=== PATIENT | female | born 1965 | race Caucasian/White ===

== ENCOUNTER 2018-01-12 12:43 | Outpatient (CLI) | payer MEDICARE, MEDICAID ==
--- NOTE | 2018-01-12 15:26 | ULT ---
THYROID ULTRASOUND: INDICATIONS: Enlarged thyroid gland. COMPARISON: None. TECHNIQUE: Calderón-scale color Doppler images were obtained of the thyroid gland. FINDINGS: The right thyroid lobe measures 4.7 x 1.4 x 1.5 cm. The left thyroid lobe measures 3.9 x 1.2 x 1 cm. The thyroid isthmus measures 0.36 cm. There is diffuse heterogeneity of the thyroid gland without a focal dominant lesion. IMPRESSION: Diffuse heterogeneous appearance of the thyroid gland may be related to a multinodular goiter. No do minant nodule is demonstrated. POS: [facility]
== END 2018-01-12 12:44 | disposition home or self-care (01) ==
LOC: ULT 12:43
PROVIDERS: ATTEND Family Medicine
DX: E03.9 Hypothyroidism, unspecified (principal); E04.9 Nontoxic goiter, unspecified
CPT/HCPCS: 76536

== ENCOUNTER 2018-03-01 15:38 | Outpatient (CLI) | payer MEDICARE, MEDICAID | END 2018-03-01 15:39 | disposition home or self-care (01) | LOC: BICMAMMO 15:38 | PROVIDERS: ATTEND Family Medicine | DX: Z12.31 Encounter for screening mammogram for malignant neoplasm of breast (principal); Z80.3 Family history of malignant neoplasm of breast | CPT/HCPCS: 77063; 77067 ==

== ENCOUNTER 2018-06-27 10:05 | Outpatient (CLI) | payer MEDICARE, MEDICAID | END 2018-06-27 10:06 | disposition home or self-care (01) | LOC: BICMRI 10:05 | PROVIDERS: ATTEND Family Medicine | DX: M75.41 Impingement syndrome of right shoulder (principal); M19.011 Primary osteoarthritis, right shoulder; M25.811 Other specified joint disorders, right shoulder ==

== ENCOUNTER 2019-03-08 12:45 | Outpatient (CLI) | payer MEDICARE, MEDICAID ==
--- NOTE | 2019-03-08 14:13 | MMO ---
Bilateral MAMMO Bilat Screen [facility]. CLINICAL HISTORY: Patient is 54 years old and is seen for screening. The patient has no personal history of cancer. VIEWS: The views performed were: bilateral craniocaudal with tomosynthesis and bilateral mediolateral oblique with tomosynthesis. FILMS COMPARED: The present examination has been compared to prior imaging studies performed at [facility] on 02/22/2015, 02/25/2016, 02/25/2017 and 03/01/2018. MAMMOGRAM FINDINGS: There are scattered fibroglandular densities. Finding 1: There are multiple stable intramammary lymph nodes seen in both breasts. Finding 2: There are stable global asymmetries seen in the sub-areolar region of both breasts. There are no suspicious masses, suspicious calcifications, or new areas of architectural distortion. IMPRESSION: THERE IS NO MAMMOGRAPHIC EVIDENCE OF MALIGNANCY. A ROUTINE FOLLOW-UP MAMMOGRAM IN 1 YEAR IS RECOMMENDED. THE RESULTS OF THIS EXAM WERE SENT TO THE PATIENT. ACR BI-RADS Category 2 - Benign finding MAMMOGRAPHY NOTE: 1. A negative mammogram report should not delay a biopsy if a dominant of clinically suspicious mass is present. 2. Approximately 10% to 15% of breast cancers are not detected by mammography. 3. Adenosis and dense breasts may obscure an underlying neoplasm.
== END 2019-03-08 12:46 | disposition home or self-care (01) ==
LOC: BICMAMMO 12:45
PROVIDERS: ATTEND Family Medicine
DX: Z12.31 Encounter for screening mammogram for malignant neoplasm of breast (principal)
CPT/HCPCS: 77063; 77067

== ENCOUNTER 2019-04-17 11:40 | Outpatient (CLI) | payer MEDICARE, MEDICAID ==
--- NOTE | 2019-04-17 13:41 | RAD ---
RADIOGRAPH ABDOMEN 2 VIEWS: Date: 04/17/19 HISTORY: 54-year-old female with epigastric pain. FINDINGS: No evidence of free air. No differential air fluid levels. Bowel gas pattern appears nonobstructive. IMPRESSION: negative. POS: [facility]
== END 2019-04-17 11:41 | disposition home or self-care (01) ==
LOC: BICRAD 11:40
PROVIDERS: ATTEND Physician Assistant Medical
DX: R10.13 Epigastric pain (principal)
CPT/HCPCS: 74019

== ENCOUNTER 2020-07-02 13:30 | Outpatient (CLI) | payer OTHER, MEDICAID ==
--- NOTE | 2020-07-02 14:24 | MMO ---
Bilateral MAMMO Bilat Screen [facility]. CLINICAL HISTORY: Patient is 55 years old and is seen for screening. The patient has no family history of breast cancer. The patient has no personal history of cancer. VIEWS: The views performed were: bilateral craniocaudal with tomosynthesis and bilateral mediolateral oblique with tomosynthesis. FILMS COMPARED: The present examination has been compared to prior imaging studies performed at [facility] on 02/25/2016, 02/25/2017, 03/01/2018 and 03/08/2019. This study has been interpreted with the assistance of computer-aided detection. MAMMOGRAM FINDINGS: The breasts are heterogeneously dense, which could obscure a lesion on mammography. Finding 1: There are multiple stable intramammary lymph nodes of varying size seen in both breasts. Finding 2: There are stable global asymmetries seen in the sub-areolar region of both breasts. There are no suspicious masses, suspicious calcifications, or new areas of architectural distortion. IMPRESSION: THERE IS NO MAMMOGRAPHIC EVIDENCE OF MALIGNANCY. A ROUTINE FOLLOW-UP MAMMOGRAM IN 1 YEAR IS RECOMMENDED. THE RESULTS OF THIS EXAM WERE SENT TO THE PATIENT. ACR BI-RADS Category 2 - Benign finding MAMMOGRAPHY NOTE: 1. A negative mammogram report should not delay a biopsy if a dominant of clinically suspicious mass is present. 2. Approximately 10% to 15% of breast cancers are not detected by mammography. 3. Adenosis and dense breasts may obscure an underlying neoplasm. Reported by: BEN EUBANKS MD Electonically Signed: [id number]
== END 2020-07-02 13:31 | disposition home or self-care (01) ==
LOC: BICMAMMO 13:30
PROVIDERS: ATTEND Family Medicine
DX: Z12.31 Encounter for screening mammogram for malignant neoplasm of breast (principal)
CPT/HCPCS: 77063; 77067

== ENCOUNTER 2020-10-30 15:18 | Outpatient (CLI) | payer OTHER, MEDICAID ==
--- NOTE | 2020-10-30 16:31 | RAD ---
Abdomen one view HISTORY: Right abdominal pain. Constipation. FINDINGS: Gas and stool overlying the colon and rectum. Small bowel gas pattern is nonspecific. Phleboliths project over the pelvis. Small oval hyperdensity projecting over the right lateral abdomen is favored to represent colon radha nt. Metallic clip overlies the central pelvis. IMPRESSION : No acute abnormalities are demonstrated.
== END 2020-10-30 15:19 | disposition home or self-care (01) ==
LOC: BICRAD 15:18
PROVIDERS: ATTEND Physician Assistant Medical
DX: K58.1 Irritable bowel syndrome with constipation (principal); K21.9 Gastro-esophageal reflux disease without esophagitis
CPT/HCPCS: 74018

== ENCOUNTER 2021-07-28 15:52 | Outpatient (CLI) | payer MEDICARE, MEDICAID | END 2021-07-28 15:53 | disposition home or self-care (01) | LOC: BICMAMMO 15:52 | PROVIDERS: ATTEND Family Medicine | DX: Z12.31 Encounter for screening mammogram for malignant neoplasm of breast (principal) | CPT/HCPCS: 77063; 77067 ==

== ENCOUNTER 2021-10-28 12:19 | Inpatient (IN) | payer MEDICARE, MEDICAID ==
[2021-10-28 13:00] LABS: #Eosinphils 0.1 thou/uL (0.0-0.7); #Lymphocytes 2.7 thou/uL (1.20-3.40); #Monocytes 0.6 thou/uL (0.11-0.59); #Neutrophils 10.7 thou/uL (1.40-6.50); %Basophils 0.2 % (0.0-1.0); %Eosinophils 0.5 % (0.0-10.0); %Monocytes 4.1 % (0.0-10.0); %Neutrophils 76.2 % (42.0-75.0); Hemoglobin 14.4 g/dL (12.0-16.0); Mean Corpuscular HGB CONC 35.1 g/dL (32.0-36.0); Mean Corpuscular Hemoglobin 34.1 pg (27.0-31.0); Mean Corpuscular Volume 97.1 fL (78.0-98.0); Platelet Count 297 thou/uL (130-400); RBC Distribution Width 11.5 % (11.5-14.5); Red Blood Cell (RBC) Count 4.24 mill/uL (4.20-5.40)
[2021-10-28 13:22] LABS: ALT (SGPT) 31 U/L (8-55); AST (SGOT) 26 U/L (5-34); Albumin 4.4 g/dL (3.5-5.0); Alkaline Phosphatase 136 U/L (40-110); Anion Gap 19 mmol/L (10-20); BUN (Urea Nitrogen) 39 mg/dL (9.8-20.1); Bilirubin, Total 0.7 mg/dL (0.2-1.2); Calc. Creatinine Clearance 0 mL/min (70-130); Calcium 10.9 mg/dL (7.8-10.44); Carbon Dioxide 28 mmol/L (22-29); Chloride 84 mmol/L (98-107); Globulin 3.9 g/dL (2.4-3.5); Potassium 5.2 mmol/L (3.5-5.1); Protein, Total 8.3 g/dL (6.0-8.3); Sodium 126 mmol/L (136-145)
[2021-10-28 13:45] LABS: Glucose 847 mg/dL (70-105)
[2021-10-28 14:51] LABS: Magnesium 2.2 mg/dL (1.6-2.6)
[2021-10-28 17:02] LABS: Bacteria/HPF None Seen HPF (None Seen); Bilirubin Negative (Negative); Blood, Urine Negative (Negative); Clarity Clear (Clear); Glucose, Urine (Dipstick) Greater than 1000 mg/dL (Negative); Ketone, Urine 10 mg/dL (Negative); Leukocyte 75 Leu/uL (Negative); Nitrite Negative (Negative); Protein, Urine (Dipstick) Negative (Neg-Trace); RBC/HPF 0-3 HPF (0-3); Specific Gravity, Urine 1.031 (1.002-1.036); Squamous Epithelial None Seen HPF (0-3); Urobilinogen Normal mg/dL (Less than 2); pH, Urine 5.5 (5.0-9.0)
[2021-10-28] MEDS ORDERED: HumaLOG 300 UNITS/3 ML VIAL ONE ×2 (19:04→19:13)
[2021-10-28] MEDS ORDERED: Dextrose 50% Abboject 50 ML SYRINGE SLOW IVP PRN (19:07)
[2021-10-28] MEDS ORDERED: Dextrose 5% in Water 1,000 ML IV PRN (19:07)
[2021-10-28] MEDS ORDERED: Insulin Regular 300 UNITS/3 ML VIAL ONE (19:14)
[2021-10-28 19:50] LABS: Anion Gap 17 mmol/L (10-20); BUN (Urea Nitrogen) 34 mg/dL (9.8-20.1); Calc. Creatinine Clearance 0 mL/min (70-130); Carbon Dioxide 27 mmol/L (22-29); Chloride 92 mmol/L (98-107); Lipase 71 U/L (8-78); Sodium 132 mmol/L (136-145)
[2021-10-28 19:58] LABS: Glucose 559 mg/dL (70-105)
[2021-10-28 20:21] LABS: Hemoglobin A1c Greater than 14.0 % (4.0-6.0)
[2021-10-28 20:26] LABS: ALT (SGPT) 27 U/L (8-55); AST (SGOT) 20 U/L (5-34); Alkaline Phosphatase 116 U/L (40-110); Anion Gap 17 mmol/L (10-20); BUN (Urea Nitrogen) 34 mg/dL (9.8-20.1); Bilirubin, Total 0.5 mg/dL (0.2-1.2); Calc. Creatinine Clearance 0 mL/min (70-130); Carbon Dioxide 27 mmol/L (22-29); Chloride 92 mmol/L (98-107); Globulin 3.6 g/dL (2.4-3.5); Potassium 4.4 mmol/L (3.5-5.1); Protein, Total 7.6 g/dL (6.0-8.3); Sodium 132 mmol/L (136-145)
[2021-10-28 20:38] LABS: Glucose 559 mg/dL (70-105)
[2021-10-28 22:26] VITALS: BMI 34.4
[2021-10-28] MEDS: Sodium Chloride 0.9% 1,000 ML IV SCH ×2 (22:53→23:43)
[2021-10-29 01:00] LABS: Anion Gap 14 mmol/L (10-20); BUN (Urea Nitrogen) 30 mg/dL (9.8-20.1); Calc. Creatinine Clearance 70 mL/min (70-130); Calcium 9.6 mg/dL (7.8-10.44); Carbon Dioxide 25 mmol/L (22-29); Chloride 98 mmol/L (98-107); Glucose 330 mg/dL (70-105); Potassium 3.7 mmol/L (3.5-5.1); Sodium 133 mmol/L (136-145)
[2021-10-29] MEDS: HumaLOG 300 UNITS/3 ML VIAL SC PRN ×4 (01:04→17:07)
[2021-10-29] MEDS ORDERED: Potassium Chloride 20 MEQ in Premix Bag 1 BAG IVPB SCH (03:00)
[2021-10-29] MEDS ORDERED: Potassium Chloride 10 MEQ/100 ML PREMIX BAG IVPB SCH (03:00)
[2021-10-29] MEDS: Levothyroxine Sodium 125 MCG TAB PO SCH (05:09)
[2021-10-29] MEDS: Gabapentin 100 MG CAP PO SCH ×2 (08:12→21:37)
[2021-10-29] MEDS: Potassium Chloride 10 MEQ TAB PO SCH (08:12)
[2021-10-29] MEDS: Fish Oil 1,000 MG CAP PO SCH (08:12)
[2021-10-29] MEDS: Aspirin 81 mg Enteric Coated Tablet PO SCH (08:12)
[2021-10-29] MEDS: Sodium Chloride 0.9% 1,000 ML IV SCH ×5 (08:13→21:38)
[2021-10-29] MEDS ORDERED: Sodium Chloride 0.9% 500 ML IVPB SCH (08:30)
[2021-10-29 08:32] LABS: ALT (SGPT) 24 U/L (8-55); AST (SGOT) 23 U/L (5-34); Albumin 3.4 g/dL (3.5-5.0); Alkaline Phosphatase 94 U/L (40-110); Anion Gap 12 mmol/L (10-20); BUN (Urea Nitrogen) 25 mg/dL (9.8-20.1); Bilirubin, Total 0.5 mg/dL (0.2-1.2); Calc. Creatinine Clearance 78 mL/min (70-130); Calcium 9.2 mg/dL (7.8-10.44); Carbon Dioxide 29 mmol/L (22-29); Chloride 100 mmol/L (98-107); Globulin 3.1 g/dL (2.4-3.5); Glucose 218 mg/dL (70-105); Potassium 3.6 mmol/L (3.5-5.1); Protein, Total 6.5 g/dL (6.0-8.3); Sodium 137 mmol/L (136-145)
[2021-10-29] MEDS ORDERED: Naproxen 500 MG TAB PO SCH (08:45)
[2021-10-29] MEDS ORDERED: Hydrochlorothiazide 25 MG TAB PO SCH (09:00)
[2021-10-29] MEDS ORDERED: Atenolol 50 MG TAB PO SCH (09:00)
[2021-10-29] MEDS ORDERED: Non-Formulary Item 1 EACH (Olmesartan Medoxomil [Benicar] 40 MG Tab) PO SCH (09:00)
[2021-10-29] MEDS ORDERED: Losartan 25 MG TAB PO SCH (09:00)
[2021-10-29] MEDS ORDERED: Multivitamin W/ Minerals 1 TAB PO SCH (09:00)
[2021-10-29] MEDS ORDERED: glipiZIDE 10 MG TAB PO SCH (10:30)
[2021-10-29] MEDS: Lansoprazole 3 MG/ML ORAL SUSPENSION PO SCH ×2 (11:19→21:36)
[2021-10-29 11:23] LABS: SARS-CoV-2 PCR by NAA Not Detected (NotDetected)
[2021-10-29 11:34] LABS: Hemoglobin A1c Greater than 14.0 % (4.0-6.0)
[2021-10-29] MEDS ORDERED: diphenhydrAMINE 50 MG/ML VIAL IVP SCH (13:30)
[2021-10-29] MEDS ORDERED: Prochlorperazine Edisylate 10 MG in Sodium Chloride 0.9% 50 ML IVPB SCH (13:45)
[2021-10-29] MEDS: Calcium Carbonate 500 MG ChewTAB PO PRN (14:01)
[2021-10-29] MEDS: Atorvastatin Calcium 40 MG TAB PO SCH (21:37)
[2021-10-30] MEDS: HumaLOG 300 UNITS/3 ML VIAL SC PRN ×6 (00:01→20:34)
[2021-10-30] MEDS: Calcium Carbonate 500 MG ChewTAB PO PRN (03:52)
[2021-10-30] MEDS: Sodium Chloride 0.9% 1,000 ML IV SCH (03:56)
[2021-10-30] MEDS: Levothyroxine Sodium 125 MCG TAB PO SCH (05:35)
[2021-10-30] MEDS: Fish Oil 1,000 MG CAP PO SCH (08:19)
[2021-10-30] MEDS: Gabapentin 100 MG CAP PO SCH ×2 (08:19→20:33)
[2021-10-30] MEDS: Potassium Chloride 10 MEQ TAB PO SCH (08:20)
[2021-10-30] MEDS: Multivitamin W/ Minerals 1 TAB PO SCH (08:20)
[2021-10-30] MEDS: glipiZIDE 10 MG TAB PO SCH (08:20)
[2021-10-30] MEDS: Aspirin 81 mg Enteric Coated Tablet PO SCH (08:20)
[2021-10-30] MEDS ORDERED: glipiZIDE 10 MG TAB PO SCH (09:00)
[2021-10-30 09:42] LABS: Anion Gap 13 mmol/L (10-20); BUN (Urea Nitrogen) 15 mg/dL (9.8-20.1); Calc. Creatinine Clearance 88 mL/min (70-130); Calcium 8.5 mg/dL (7.8-10.44); Carbon Dioxide 23 mmol/L (22-29); Chloride 104 mmol/L (98-107); Glucose 229 mg/dL (70-105); Potassium 3.5 mmol/L (3.5-5.1); Sodium 136 mmol/L (136-145)
[2021-10-30] MEDS ORDERED: Polyethylene Glycol 3350 17 GM Packet PO SCH (11:00)
[2021-10-30] MEDS ORDERED: Metoclopramide HCl 10 MG TAB PO SCH (11:00)
[2021-10-30] MEDS ORDERED: Bisacodyl 5 MG TAB PO SCH (11:00)
[2021-10-30] MEDS ORDERED: diphenhydrAMINE 50 MG/ML VIAL IVP SCH (11:00)
[2021-10-30] MEDS ORDERED: Lantus 1000 UNITS/10 ML VIAL SC SCH (11:00)
[2021-10-30] MEDS ORDERED: Bisacodyl 5 MG TAB ONE (11:39)
[2021-10-30] MEDS ORDERED: Metoclopramide HCl 10 MG TAB ONE (11:39)
[2021-10-30] MEDS ORDERED: Polyethylene Glycol 3350 17 GM Packet ONE ×2 (11:40→11:51)
[2021-10-30] MEDS ORDERED: diphenhydrAMINE 50 MG/ML VIAL ONE (11:40)
[2021-10-30] MEDS: Lansoprazole 3 MG/ML ORAL SUSPENSION PO SCH ×2 (11:48→20:32)
[2021-10-30] MEDS ORDERED: Sodium Chloride 0.65% Nasal 44 ML BOT EA NARE PRN (15:12)
[2021-10-30] MEDS ORDERED: Glycerin Adult Supp. (24 ct jar) PR SCH (17:00)
[2021-10-30] MEDS: Acetaminophen 325 MG TAB PO PRN ×2 (18:06→21:55)
[2021-10-30] MEDS ORDERED: Lidocaine 2% Viscous Solution 20 ML, Aluminum & Magnesium Hydroxide 30 ML, Donnatal Eli... SSW SCH (19:00)
[2021-10-30] MEDS: Atorvastatin Calcium 40 MG TAB PO SCH (20:33)
[2021-10-31] MEDS: HumaLOG 300 UNITS/3 ML VIAL SC PRN ×3 (05:06→16:35)
[2021-10-31] MEDS: Levothyroxine Sodium 125 MCG TAB PO SCH (05:06)
[2021-10-31] MEDS ORDERED: Lantus 1000 UNITS/10 ML VIAL SC SCH (09:00)
[2021-10-31] MEDS ORDERED: Lidocaine Viscous Sol 2% 15 ml UD Cup SSW SCH (10:30)
[2021-10-31] MEDS: glipiZIDE 10 MG TAB PO SCH (11:20)
[2021-10-31] MEDS: Fish Oil 1,000 MG CAP PO SCH (11:21)
[2021-10-31] MEDS: Aspirin 81 mg Enteric Coated Tablet PO SCH (11:21)
[2021-10-31] MEDS: Gabapentin 100 MG CAP PO SCH (11:21)
[2021-10-31] MEDS: Lansoprazole 3 MG/ML ORAL SUSPENSION PO SCH (11:22)
[2021-10-31] MEDS: Multivitamin W/ Minerals 1 TAB PO SCH (11:23)
[2021-10-31] MEDS: Potassium Chloride 10 MEQ TAB PO SCH (11:23)
[2021-10-31] MEDS ORDERED: Lidocaine 2% Viscous Solution 10 ML, Aluminum & Magnesium Hydroxide 30 ML SSW SCH (11:30)
[2021-10-31] MEDS ORDERED: Ketorolac Tromethamine 30 MG/ML VIAL IVP SCH (13:00)
[2021-10-31 19:15] VITALS: BP 157/103; TEMP 98.5
== END 2021-10-31 20:20 | disposition home or self-care (01) | DRG 682 ==
LOC: ERS 12:19 → T4-A 17:43
PROVIDERS: ADMIT Family Medicine; ATTEND Family Medicine
DX: N17.9 Acute kidney failure, unspecified (principal); E11.00 Type 2 diabetes mellitus with hyperosmolarity without nonketotic hyperglycemic-hyperosmolar coma (NKHHC); K85.90 Acute pancreatitis without necrosis or infection, unspecified; Z20.822 Contact with and (suspected) exposure to COVID-19; R51.9 Headache, unspecified; K76.0 Fatty (change of) liver, not elsewhere classified; E03.9 Hypothyroidism, unspecified; E11.43 Type 2 diabetes mellitus with diabetic autonomic (poly)neuropathy; K31.84 Gastroparesis; E78.5 Hyperlipidemia, unspecified; K21.9 Gastro-esophageal reflux disease without esophagitis; F79 Unspecified intellectual disabilities; R62.50 Unspecified lack of expected normal physiological development in childhood; E66.9 Obesity, unspecified; N18.30 Chronic kidney disease, stage 3 unspecified; I12.9 Hypertensive chronic kidney disease with stage 1 through stage 4 chronic kidney disease, or unspecified chronic kidney disease; E11.22 Type 2 diabetes mellitus with diabetic chronic kidney disease; I34.0 Nonrheumatic mitral (valve) insufficiency; Z79.899 Other long term (current) drug therapy; Z79.82 Long term (current) use of aspirin; Z79.890 Hormone replacement therapy; Z79.84 Long term (current) use of oral hypoglycemic drugs; Z90.89 Acquired absence of other organs; Z68.34 Body mass index [BMI] 34.0-34.9, adult; Z91.14 Patient's other noncompliance with medication regimen
CPT/HCPCS: 36415; 36416; 74018; 76700; 80048; 80053; 81003; 81015; 82010; 83036; 83690; 83735; 83930; 84100; 84484; 84681; 85025; 93005; 96374; J0780; J1200; J1815; J1885; J3480; J7030; J7050; U0003; U0005

== ENCOUNTER 2022-10-15 14:56 | Outpatient (CLI) | payer OTHER, MEDICAID | END 2022-10-15 14:57 | disposition home or self-care (01) | LOC: BICRAD 14:56 | PROVIDERS: ATTEND Physician Assistant | DX: M54.42 Lumbago with sciatica, left side (principal); M47.816 Spondylosis without myelopathy or radiculopathy, lumbar region | CPT/HCPCS: 72100 ==

== ENCOUNTER 2022-12-09 09:15 | Inpatient (IN) | payer OTHER, MEDICAID, MEDICARE ==
[2022-12-09] MEDS ORDERED: Insulin Regular 300 UNITS/3 ML VIAL SC SCH (10:00)
[2022-12-09] MEDS ORDERED: Sodium Chloride 0.9% 1,000 ML IV SCH (10:00)
[2022-12-09] MEDS ORDERED: Insulin Regular 300 UNITS/3 ML VIAL ONE (10:09)
[2022-12-09 10:20] LABS: #Basophils 0.1 thou/uL (0.0-0.2); #Eosinphils 0.1 thou/uL (0.0-0.7); #Lymphocytes 3.1 thou/uL (1.20-3.40); #Monocytes 0.4 thou/uL (0.11-0.59); #Neutrophils 3.3 thou/uL (1.40-6.50); %Basophils 1.1 % (0.0-1.0); %Eosinophils 1.5 % (0.0-10.0); %Lymphocytes 44.5 % (21.0-51.0); %Monocytes 6.1 % (0.0-10.0); %Neutrophils 46.9 % (42.0-75.0); Hemoglobin 13.1 g/dL (12.0-16.0); Mean Corpuscular HGB CONC 32.8 g/dL (32.0-36.0); Mean Corpuscular Hemoglobin 32.7 pg (27.0-31.0); Mean Corpuscular Volume 99.7 fl (78.0-98.0); Mean Platelet Volume 8.5 fL (7.4-10.4); Platelet Count 241 10x3/uL (130-400); RBC Distribution Width 11.1 % (11.5-14.5); Red Blood Cell (RBC) Count 3.99 mill/uL (4.20-5.40)
[2022-12-09 10:34] LABS: Bilirubin Negative (Negative); Blood, Urine Negative (Negative); Clarity Clear (Clear); Glucose, Urine (Dipstick) Greater than 1000 mg/dL (Negative); Ketone, Urine Negative (Negative); Leukocyte 500 Leu/uL (Negative); Nitrite Negative (Negative); Protein, Urine (Dipstick) Negative (Neg-Trace); RBC/HPF 0-3 HPF (0-3); Squamous Epithelial 0-3 HPF (0-3); Urobilinogen Normal mg/dL (Less than 2)
[2022-12-09 10:38] LABS: Bacteria/HPF 1+ HPF (None Seen); WBC/HPF 21-50 HPF (0-3)
[2022-12-09 10:50] LABS: ALT (SGPT) 34 U/L (8-55); AST (SGOT) 22 U/L (5-34); Alkaline Phosphatase 126 U/L (40-110); Anion Gap 16 mmol/L (10-20); BUN (Urea Nitrogen) 26 mg/dL (9.8-20.1); Bilirubin, Total 0.6 mg/dL (0.2-1.2); Calc. Creatinine Clearance 0 mL/min (70-130); Calcium 9.8 mg/dL (7.8-10.44); Carbon Dioxide 26 mmol/L (22-29); Chloride 93 mmol/L (98-107); Estimated GFR 38; Globulin 3.2 g/dL (2.4-3.5); Lipase 56 U/L (8-78); Magnesium 2.1 mg/dL (1.6-2.6); Phosphorus 5.2 mg/dL (2.3-4.7); Potassium 5.3 mmol/L (3.5-5.1); Protein, Total 7.2 g/dL (6.0-8.3); Sodium 130 mmol/L (136-145)
[2022-12-09 10:58] LABS: Actual Bicarbonate (HCO3v) 24 mEq/L (22-28); Analyzer IN Cardio ER; Calcium, Ionized (venous) 1.11 mmol/L (1.16-1.32); Chloride (VBG) 96 mmol/L (98-106); Hemoglobin (Hb) 13.7 g/dL (11.7-16.0); Potassium (VBG) 4.76 mmol/L (3.70-5.30); Sodium 130.4 mmol/L (133-146); pH (venous) 7.36 (7.32-7.43)
[2022-12-09 11:03] LABS: Glucose 809 mg/dL (70-105)
[2022-12-09] MEDS ORDERED: cefTRIAXone\\ROCEPHIN 2 GM VIAL ONE (11:06)
[2022-12-09] MEDS ORDERED: INSULIN REGULAR IN 0.9 % NACL 100 UNIT/100 ML BAG ONE (12:23)
[2022-12-09] MEDS ORDERED: Sodium Chloride 0.9% 1,000 ML IV PRN ×4 (13:25)
[2022-12-09] MEDS ORDERED: Electrolyte Replacement Protocol 1 EACH IVPB PRN (13:25)
[2022-12-09] MEDS ORDERED: Acetaminophen 325 MG TAB PO PRN (13:25)
[2022-12-09] MEDS ORDERED: D5 1/2 NS w/20 mEq KCL 1,000 ML IV PRN (13:25)
[2022-12-09] MEDS ORDERED: Dextrose 50% Abboject 50 ML SYRINGE SLOW IVP PRN ×2 (13:25→17:45)
[2022-12-09] MEDS ORDERED: Dextrose 5 %-0.45 % NaCl 1,000 ML IV PRN (13:25)
[2022-12-09] MEDS ORDERED: NS 0.9% w/ 20 MEQ KCL 1,000 ML IV PRN ×2 (13:25)
[2022-12-09] MEDS ORDERED: HUMULIN R 100 UNITS in Sodium Chloride 0.9% 100 ML IVPB SCH (13:30)
[2022-12-09] MEDS ORDERED: Dextrose 5% in Water 1,000 ML IV PRN ×2 (13:45→17:45)
[2022-12-09] MEDS ORDERED: Electrolyte Replacement Protocol FS PRN (13:45)
[2022-12-09 14:09] VITALS: BP 126/73
[2022-12-09 14:29] LABS: Anion Gap 12 mmol/L (10-20); BUN (Urea Nitrogen) 21 mg/dL (9.8-20.1); Calc. Creatinine Clearance 0 mL/min (70-130); Calcium 8.9 mg/dL (7.8-10.44); Carbon Dioxide 23 mmol/L (22-29); Chloride 108 mmol/L (98-107); Estimated GFR 65; Glucose 239 mg/dL (70-105); Potassium 3.7 mmol/L (3.5-5.1); Sodium 139 mmol/L (136-145)
[2022-12-09 15:50] LABS: SARS-CoV-2 NAA Rapid Test Not Detected (NotDetected)
[2022-12-09 15:51] VITALS: BMI 31.4
[2022-12-09 17:19] LABS: Hemoglobin A1c 12.6 % (4.0-6.0)
[2022-12-09] MEDS ORDERED: HumaLOG 300 UNITS/3 ML VIAL SC PRN (17:45)
[2022-12-09] MEDS: Lactated Ringer's 1,000 ML IV SCH (18:23)
[2022-12-09 18:45] LABS: Anion Gap 15 mmol/L (10-20); BUN (Urea Nitrogen) 19 mg/dL (9.8-20.1); Calc. Creatinine Clearance 93 mL/min (70-130); Carbon Dioxide 21 mmol/L (22-29); Chloride 110 mmol/L (98-107); Estimated GFR 69; Glucose 136 mg/dL (70-105); Sodium 142 mmol/L (136-145)
[2022-12-09] MEDS: Gabapentin 100 MG CAP PO SCH (20:26)
[2022-12-09] MEDS: Atorvastatin Calcium 40 MG TAB PO SCH (20:26)
[2022-12-09] MEDS ORDERED: Insulin Glargine 30 UNITS/0.3 ML VIAL SC SCH (21:00)
[2022-12-10] MEDS: HumaLOG 300 UNITS/3 ML VIAL SC PRN ×3 (00:14→12:01)
[2022-12-10] MEDS: Lactated Ringer's 1,000 ML IV SCH ×2 (02:54→22:39)
[2022-12-10 04:19] LABS: Anion Gap 11 mmol/L (10-20); BUN (Urea Nitrogen) 18 mg/dL (9.8-20.1); Calc. Creatinine Clearance 98 mL/min (70-130); Calcium 9.4 mg/dL (7.8-10.44); Carbon Dioxide 23 mmol/L (22-29); Chloride 109 mmol/L (98-107); Cholesterol 114 mg/dl (< 200 Desired); Estimated GFR 73; Glucose 129 mg/dL (70-105); HDL Cholesterol 38 mg/dL (>60 Neg Risk); LDL Cholesterol, Calculated 61 mg/dL; Potassium 4.2 mmol/L (3.5-5.1); Sodium 139 mmol/L (136-145); Triglycerides 73 mg/dL (Less than 150)
[2022-12-10 04:39] LABS: Band 5 % (5-11); Hemoglobin 12.9 g/dL (12.0-16.0); Lymphocytes 53 % (21-51); MDiff Complete? YES; Macrocytosis SLIGHT = 6-15 cells (100X) (0-5/hpf); Mean Corpuscular HGB CONC 34.3 g/dL (32.0-36.0); Mean Corpuscular Hemoglobin 33.6 pg (27.0-31.0); Mean Corpuscular Volume 98.2 fl (78.0-98.0); Mean Platelet Volume 9.1 fL (7.4-10.4); Monocytes 5 % (0-10); Neutrophil 35 % (42-75); Ovalocytes SLIGHT = 2-5 cells (100X) (0-1/hpf); Platelet Count 177 10x3/uL (130-400); Platelet Morphology Comment Appears Adequate; Red Blood Cell (RBC) Count 3.85 mill/uL (4.20-5.40); White Blood Cell (WBC) Count 8.5 10x3/uL (4.8-10.8)
[2022-12-10] MEDS: Levothyroxine Sodium 125 MCG TAB PO SCH (04:53)
[2022-12-10] MEDS: Gabapentin 100 MG CAP PO SCH ×2 (08:12→20:07)
[2022-12-10] MEDS ORDERED: Ibuprofen 600 MG TAB PO PRN (08:12)
[2022-12-10] MEDS: Insulin Glargine 30 UNITS/0.3 ML VIAL SC SCH ×2 (08:48→20:08)
[2022-12-10] MEDS ORDERED: [UNRECOGNIZED DRUG - OTHER] SC SCH (09:00)
[2022-12-10] MEDS ORDERED: INSULIN GLARGINE SC SCH (09:00)
[2022-12-10] MEDS ORDERED: cefTRIAXone\\ROCEPHIN 1 GM in Sodium Chloride 0.9% 100 ML IVPB SCH (11:00)
[2022-12-10] MEDS ORDERED: Naproxen 500 MG TAB PO SCH (12:00)
[2022-12-10] MEDS: Calcium Carbonate 500 MG ChewTAB PO PRN (12:44)
[2022-12-10] MEDS: Atorvastatin Calcium 40 MG TAB PO SCH (20:07)
[2022-12-10] MEDS: Naproxen 500 MG TAB PO PRN (20:08)
[2022-12-11 04:26] LABS: Anion Gap 11 mmol/L (10-20); BUN (Urea Nitrogen) 18 mg/dL (9.8-20.1); Calc. Creatinine Clearance 93 mL/min (70-130); Calcium 9.1 mg/dL (7.8-10.44); Carbon Dioxide 26 mmol/L (22-29); Chloride 107 mmol/L (98-107); Estimated GFR 69; Glucose 111 mg/dL (70-105); Potassium 3.9 mmol/L (3.5-5.1); Sodium 140 mmol/L (136-145)
[2022-12-11] MEDS: Levothyroxine Sodium 125 MCG TAB PO SCH (05:00)
[2022-12-11] MEDS: Gabapentin 100 MG CAP PO SCH (08:19)
[2022-12-11] MEDS: Naproxen 500 MG TAB PO PRN (08:19)
[2022-12-11] MEDS: Calcium Carbonate 500 MG ChewTAB PO PRN (08:25)
[2022-12-11] MEDS ORDERED: Insulin Glargine 30 UNITS/0.3 ML VIAL SC SCH (09:00)
[2022-12-11 12:16] VITALS: TEMP 97.7
== END 2022-12-11 15:17 | disposition home or self-care (01) | DRG 638 ==
LOC: ERS 09:15 → ERHOLD 12:35 → IMCU/EMU 15:30
PROVIDERS: ADMIT Family Medicine; ATTEND Family Medicine
DX: E11.00 Type 2 diabetes mellitus with hyperosmolarity without nonketotic hyperglycemic-hyperosmolar coma (NKHHC) (principal); N17.9 Acute kidney failure, unspecified; N39.0 Urinary tract infection, site not specified; Z20.822 Contact with and (suspected) exposure to COVID-19; I10 Essential (primary) hypertension; K21.9 Gastro-esophageal reflux disease without esophagitis; E03.9 Hypothyroidism, unspecified; E78.5 Hyperlipidemia, unspecified; T38.3X6A Underdosing of insulin and oral hypoglycemic [antidiabetic] drugs, initial encounter; E11.649 Type 2 diabetes mellitus with hypoglycemia without coma; Z79.899 Other long term (current) drug therapy; Z79.82 Long term (current) use of aspirin; Z79.4 Long term (current) use of insulin; Z90.89 Acquired absence of other organs; Z82.49 Family history of ischemic heart disease and other diseases of the circulatory system
CPT/HCPCS: 36415; 36416; 71045; 80048; 80053; 80061; 81003; 81015; 82010; 82805; 83036; 83690; 83735; 83930; 84100; 84443; 84484; 85025; 87086; 93005; 96365; 96366; 96367; J0696; J1815; J3480; J3490; J7120; U0002

== ENCOUNTER 2023-09-22 09:13 | Outpatient (CLI) | payer OTHER, MEDICAID | END 2023-09-22 09:14 | disposition home or self-care (01) | LOC: ULT 09:13 | PROVIDERS: ATTEND Physician Assistant Medical | DX: K21.9 Gastro-esophageal reflux disease without esophagitis (principal); R10.11 Right upper quadrant pain; K59.9 Functional intestinal disorder, unspecified; K59.09 Other constipation; K76.0 Fatty (change of) liver, not elsewhere classified | CPT/HCPCS: 76705 ==

== ENCOUNTER 2023-12-31 14:07 | Emergency (ER) | payer OTHER, MEDICAID ==
[2023-12-31 14:55] LABS: #Monocytes 0.4 thou/uL (0.11-0.59); #Neutrophils 4.8 thou/uL (1.40-6.50); %Basophils 0.3 % (0.0-1.0); %Eosinophils 0.3 % (0.0-10.0); %Lymphocytes 32.3 % (21.0-51.0); %Monocytes 5.1 % (0.0-10.0); %Neutrophils 61.7 % (42.0-75.0); Hematocrit 39.2 % (36.0-47.0); Hemoglobin 13.4 g/dL (12.0-16.0); Mean Corpuscular HGB CONC 34.2 g/dL (32.0-36.0); Mean Corpuscular Hemoglobin 31.8 pg (27.0-31.0); Mean Corpuscular Volume 92.9 fl (78.0-98.0); Mean Platelet Volume 9.3 fL (7.4-10.4); Platelet Count 282 10x3/uL (130-400); RBC Distribution Width 12.7 % (11.5-14.5); Red Blood Cell (RBC) Count 4.22 mill/uL (4.20-5.40); White Blood Cell (WBC) Count 7.8 10x3/uL (4.8-10.8)
[2023-12-31 15:16] LABS: ALT (SGPT) 49 U/L (8-55); AST (SGOT) 40 U/L (5-34); Albumin 3.8 g/dL (3.5-5.0); Alkaline Phosphatase 86 U/L (40-110); Anion Gap 13 mmol/L (10-20); BUN (Urea Nitrogen) 7 mg/dL (9.8-20.1); Bilirubin, Total 0.5 mg/dL (0.2-1.2); Calc. Creatinine Clearance 0 mL/min (70-130); Calcium 9.1 mg/dL (7.8-10.44); Carbon Dioxide 23 mmol/L (22-29); Chloride 106 mmol/L (98-107); Estimated GFR 83; Globulin 3.4 g/dL (2.4-3.5); Glucose 113 mg/dL (70-105); Potassium 4.1 mmol/L (3.5-5.1); Protein, Total 7.2 g/dL (6.0-8.3); Sodium 138 mmol/L (136-145)
[2023-12-31 16:21] LABS: Bacteria/HPF None Seen HPF (None Seen); Bilirubin Negative (Negative); Blood, Urine Negative (Negative); CAUTI Indications for Culture Alt mental st,lethar; Clarity Clear (Clear); Glucose, Urine (Dipstick) >=1000 mg/dL (Negative); Ketone, Urine Negative (Negative); Leukocyte 25 Leu/uL (Negative); Nitrite Negative (Negative); Protein, Urine (Dipstick) Negative (Neg-Trace); RBC/HPF 0-3 HPF (0-3); Specific Gravity, Urine 1.002 (1.002-1.036); Squamous Epithelial 0-3 HPF (0-3); Urobilinogen Normal mg/dL (Less than 2)
[2023-12-31 16:22] LABS: Urine Culture Reflex No No
== END 2023-12-31 17:13 | disposition home or self-care (01) ==
LOC: ERS 14:07
DX: E11.65 Type 2 diabetes mellitus with hyperglycemia (principal); G89.29 Other chronic pain; I10 Essential (primary) hypertension
CPT/HCPCS: 36415; 36416; 71045; 76705; 80053; 81001; 85025; 96360; 96361

== ENCOUNTER 2024-07-06 15:26 | Outpatient (CLI) | payer MEDICARE, OTHER | END 2024-07-06 15:27 | disposition home or self-care (01) | LOC: BICMAMMO 15:26 | PROVIDERS: ATTEND Family Medicine | DX: Z12.31 Encounter for screening mammogram for malignant neoplasm of breast (principal) | CPT/HCPCS: 77063; 77067 ==